=== PATIENT | female | born 1955 | race Caucasian/White ===

== ENCOUNTER → 2020-10-17 | Outpatient (CLI) | payer OTHER, MEDICARE ==
[~2020-10-17] MED LIST: ALDACTONE50 MG PO; ALLER-TEC D 5-1 EACH PO; ALLERGY INJECTIONS; AZELASTINE HCL6 ML OPHTHALMIC; BUSPIRONE HCL10 MG PO; CLONAZEPAM PO; DILAUDID 2 MG TA2 MG; DOXYCYCLINE HYC50 M4 PO; ELDERBERRY-VIT1 EACH PO; ENDOCET 5-3251 EACH PO; FISH OIL 1,0001 EAC9 PO; GLUCOPHAGE XR750 MG PO; GLUCOSAMINE &1 EACH PO; LIPITOR 10 MG10 M1 PO; LIPITOR20 MG PO; MINIPRESS2 MG PO; MYSOLINE50 MG PO; OMEPRAZOLE 20 M20 M1 PO; PROAIR RESPICL90 MCG INH; PROZAC20 M1 PO; PSEUDOEPHEDRINE PO; QNASL10.6 GM NASAL; SAPHRIS10 MG PO; SYMBICORT160 MCG/4. INH; TRAMADOL 50 MG50 MG PO; TRAZODONE HCL100 MG PO; VITAMIN B-121000 MC3 PO; VITAMIN D350 MCG PO; XYZAL5 MG PO
== END ==
LOC: LAB 10:46
PROVIDERS: ATTEND Student in an Organized Health Care Education/Training Program
DX: Z01.812 Encounter for preprocedural laboratory examination (principal); Z20.828 Contact with and (suspected) exposure to other viral communicable diseases

== ENCOUNTER 2020-10-23 08:00 | Day surgery (SDC) | payer OTHER, MEDICARE ==
[2020-10-17 08:57] LABS: URINE BILIRUBIN NEGATIVE (Negative); URINE BLOOD NEGATIVE (Negative); URINE CLARITY CLEAR; URINE COLOR YELLOW; URINE GLUCOSE-RANDOM* NEGATIVE (Negative); URINE KETONES TRACE (Negative); URINE LEUKOCYTES-REFLEX NEGATIVE (Negative); URINE NITRITE-REFLEX NEGATIVE (Negative); URINE PROTEIN (DIPSTICK) NEGATIVE (Negative); URINE SPECIFIC GRAVITY >= 1.030 (1.005-1.035); URINE UROBILINOGEN 0.2 E.U./dl (0.2-1.0)
[2020-10-17 08:58] LABS: HEMATOCRIT 37.7 % (37.0-47.0); HEMOGLOBIN 12.9 gm/dL (12.0-15.0); MCH 32.6 pg (26.0-34.0); MCHC 34.2 g/dL (28.0-37.0); MCV 95.3 fL (80.0-100.0); RBC 3.95 mil/uL (4.20-5.00); RDW 12.9 % (10.5-14.5); WBC 5.4 thou/uL (4.0-11.0)
[2020-10-17 09:03] LABS: ALBUMIN 4.1 g/dL (3.4-5.0); CALCIUM 9.7 mg/dL (8.5-10.1); CREATININE 1.1 mg/dL (0.6-1.0); POTASSIUM 3.7 mmol/L (3.5-5.1)
[2020-10-17 09:13] LABS: PROTIME 10.5 Seconds (9.3-11.4)
--- NOTE | 2020-10-17 11:56 | EKG ---
[address] [address] ELECTROCARDIOGRAM REPORT Name: KENY MARTNI Room #: PRE [facility]#: [id number] Admission: Attend Phys: Oscar Ponce MD Discharge: Date of : 59 Report #: [id number] [facility] Test Date: 2020-10-17 Test Time: 08:55:10 Pat Name: KENY MARTIN Department: Room: Gender: F Medical Physicist: ANGIE DIGGS : 1955 Requested By: Ocsar Ponce Order Number: [id number] : Akira Muller Measurements Intervals [place] Rate: 72 P: 39 GA: 192 QRS: -8 QRSD: 91 T: 41 QT: 362 QTc: 397 Interpretive Statements Sinus rhythm Compared to ECG 07/15/2011 07:16:51 T-wave abnormality no longer present Electronically Signed On 10-17-2020 11:56:41 [employer] by Akira Muller [email or web address] <ELECTRONICALLY SIGNED> By: Akira Muller MD, [facility] 10/17/20 1156 [id number] Akira Muller MD, FACC /EPI
[2020-10-18 00:06] LABS: GLYCOHEMOGLOBIN (HGB A1C) 5.7 % (4.8-5.6)
[~2020-10-23] VITALS: Ht 162.6 cm; Wt 101.6 kg
[2020-10-23 15:06] VITALS: BP 113/79
[2020-10-23 18:49] VITALS: BP 127/57
[2020-10-24 04:08] VITALS: BP 96/34
--- NOTE | 2020-10-24 04:34 | NUR ---
ASSUMED CARE OF PT AT 1900HRS. PT AOX4 AND LETS NEEDS BE KNOWN. FALL PRECAUTION IN PLACE. PT IS S/P KNEE REPLACEMENT DAY 0. PAULIE WRAP, POLAR CARE, TEDS AND SCD IN PLACE. PT REPORTED SOME PAIN AND WAS TREATED WITH PRN PO PAIN MEDS. ABX TREATMENT CONTINUED. BP IS LOW BUT OTHER VSS. PT IS ASYMPTOMATIC. PT WAS [place] TO GET COMFORTABLE AND SLEEP PART OF THE SHIFT. WILL CONTINUE TO MONITOR.
[2020-10-24 08:09] VITALS: BP 102/53
--- NOTE | 2020-10-24 08:37 | NUR ---
RD notified by RN that pt is allergic to MSG. Noted allergy in chart. Diet modified to 2g Sodium. RD will remain available.
--- NOTE | 2020-10-24 12:10 | NUR ---
Pt visited with this am. Pt notes she is allergic to MSG and after eating the roasted chicken and potatoes last pm pt states she had an allergic reaction requiring benedryl. RD discussed with food technology teacher who stated no products with MSG are used. Discussed with pt who states she cannot have nitrates or nitrites as well. Encouraged pt to call down and order her own items prior to meals to help reduce the risk of allergic reaction. Pt attempted to order lunch, however clock in room was slow and lunch ordering had been ended. Pt was eventually able to order lunch items. RD encouraged pt to order prior to 4:30pm cut off for dinner if she was not able to d/c by this time. Pt expressed anxiety over going home and pain. Tearful but pleasant. RD will remain available.
[2020-10-24 13:30] VITALS: BP 102/53
[2020-10-24 13:33] VITALS: BP 102/53
--- NOTE | 2020-10-24 13:39 | NUR ---
ASSESSMENT: CM REVIEWED CHART. PT IS S/P RIGHT TKA. PT LIVES IN A HOUSE WITH HER SPOUSE. PT HAS A COUPLE OF STEPS TO ENTER. PT REPORTS HAVING A WALKER AT HOME. PT STATES SHE IS WANTING HH AT DISCHARGE SHE HAS NOONE THAT CAN DRIVE HER TO OUTPT THERAPY. CM DISCUSSED DIFFERENT HH OPTIONS AND SHE STATES SHE HAS NO PRERFERENCE OF HH AGENCY. CM FAXED REFERRAL TO [facility]. PT IS DISCHARGING HOME TODAY. PT REPORTS NO FURTHER NEEDS FROM CM.
--- NOTE | 2020-10-24 13:40 | NUR ---
PT ASSESSED AT START OF SHIFT. WALKING W/ THERAPY AND DOING WELL. DSNG DRY. ICE PACK IN PLACE. PAIN RELEIVED W/ PAIN MED. EATING AND DRINKING WELL. PLANNING TO HAVE HOME HEALTH THERAPY. DISCHARGED AT THIS TIME W/ ALL BELONGINGS.
--- NOTE | 2020-10-25 08:30 | O ---
[facility] [place] [place] [address] OPERATIVE REPORT Name: KENY MARTIN Room #: DEP [facility]..#: [id number] Admission: 10/23/20 Attend Phys: Oscar Ponce MD Discharge: 10/24/20 Date of : 59 Report #: [id number] THIS REPORT FOR: cc: César Altamirano MD, Halla MD Abraham,Oscar Ruiz MD ~ DATE OF SERVICE: 10/23/2020 PREOPERATIVE DIAGNOSIS: Right knee osteoarthritis. POSTOPERATIVE DIAGNOSIS: Right knee osteoarthritis. PROCEDURE: Right total knee arthroplasty using Navio robotic assistant vice president. SURGEON: Oscar Ponce MD WARDROBE ATTENDANT: Cindy Munroe PA-C INDICATIONS FOR WARDROBE ATTENDANT: Throughout the case, extensive retraction and manipulation of the knee was required. This was afforded to me by my assistant vice president. ANESTHESIA: LMA with an adductor canal block. IMPLANTS: Choudhury and Nephew size 5 Journey II BCS Oxinium femur, size 3 tibia, size 11 polyethylene and size 32 patella. TOURNIQUET TIME: 47 minutes. ESTIMATED BLOOD LOSS: 25 mL. COMPLICATIONS: None. SPECIMENS: None. CONDITION UPON LEAVING THE OPERATING ROOM: Stable. INDICATIONS FOR PROCEDURE: The patient is a 64-year-old female with right knee osteoarthritis. She had failed conservative measures for this and after discussion with her, she elected for right total knee arthroplasty. DESCRIPTION OF PROCEDURE: Risks, benefits, alternatives, and complications were discussed in detail with the patient including but not limited to risk of anesthesia, risk of damage to nerves, arteries, blood vessels, risk for infection, bleeding, risk for continued knee pain, need for reoperation. Informed consent was obtained from the patient. Right knee was appropriately [facility] [address] [place] [address] OPERATIVE REPORT Name: KENY MARTIN Room #: DEP [facility] Domingo.#: [id number] Admission: 10/23/20 Attend Phys: Oscar Ponce MD Discharge: 10/24/20 Date of : 59 Report #: [id number] marked in the preoperative holding area. IV clindamycin was given for preoperative antibiotics. She was brought to the operating room and placed in the supine position on the operating room table. LMA anesthesia was induced without complication. Tourniquet was placed on the right thigh. Right lower extremity was prepped and draped in normal sterile fashion. Timeout was performed properly identifying the patient and procedure as well as the instrumentation and implants. All in the operating room were in agreement. Right lower extremity was exsanguinated, tourniquet was inflated. Tourniquet time was 47 minutes. Standard midline approach to the knee was made with 10 blade through the skin. Dissection was taken down sharply to the fascia and deep flaps were developed medially and laterally. Fresh 10 blade was used to make a medial parapatellar arthrotomy and the knee was inspected. There was severe medial compartment with moderate patellofemoral compartment osteoarthritis. ACL and PCL were removed sharply. Reference pins were placed in the femur and the tibia. The knee was then digitally mapped using the [employer] robotic system. Intraoperative plan was made and we sized the size 5 femur and size 3 tibia and a size 10 spacer. After acceptance of the intraoperative plan, the distal femoral cut was made with a Navio bur. Distal femoral cutting block was pinned in place and chamfer cuts were made. Attention was turned to the tibia. Remainder of the menisci removed with Bovie cautery. Tibial resection guide was pinned in place using the Navio for placement and tibial resection was made. Flexion and extension gaps were then checked and found to have good balance in flexion and extension both medially and laterally. Tibia was sized, found to be a size 3. A size 3 tibial trial was placed, pinned and punched. A size 5 femoral trial was placed and box cut was made. This was then trialed with a size 10 and then a size 11 polyethylene. Size 11 demonstrated 1-2 mm of laxity medially and laterally throughout range of motion of the knee. A 9 mm was resected from the posterior surface of the patella and a size 32 patellar trial button was placed. Knee was taken through range of motion, found to be stable, found to have good patellar tracking. Trial components were removed. Bony ends were thoroughly irrigated with normal saline. Final size 3 tibia, size 5 Journey II BCS Oxinium femur and a size 32 patella were cemented in place using standard cementation techniques. While the cement cured, a periarticular injection consisting of morphine, ropivacaine, epinephrine and Toradol was placed around the knee joint capsule. After the cement cured, the tourniquet was deflated. Hemostasis was obtained with Bovie cautery. A final size 11 polyethylene was placed. A gram of vancomycin was placed deep in the joint. The fascia was closed with 0 Vicryl, skin was closed with 2-0 Vicryl and skin staple. MELVIN dressing was applied. The patient tolerated this procedure well and went to the recovery room under care of anesthesia postoperatively. <ELECTRONICALLY SIGNED> By: Oscar Ponce MD 10/25/20 0830 [id number] Oscar Ponce MD /nt
== END 2020-10-24 13:40 | disposition home health service (06) ==
LOC: OR 08:00 → TBA 08:05 → OR 08:11 → 4S 15:28 → OR 10-24 13:40
PROVIDERS: ATTEND Orthopaedic Surgery
DX: M17.11 Unilateral primary osteoarthritis, right knee (principal); M25.561 Pain in right knee; E11.9 Type 2 diabetes mellitus without complications; E78.00 Pure hypercholesterolemia, unspecified; J45.909 Unspecified asthma, uncomplicated; K21.9 Gastro-esophageal reflux disease without esophagitis; F32.9 Major depressive disorder, single episode, unspecified; F41.9 Anxiety disorder, unspecified; M19.90 Unspecified osteoarthritis, unspecified site; Z98.890 Other specified postprocedural states; Z79.899 Other long term (current) drug therapy; Z90.710 Acquired absence of both cervix and uterus; Z90.49 Acquired absence of other specified parts of digestive tract; Z85.3 Personal history of malignant neoplasm of breast; Z88.8 Allergy status to other drugs, medicaments and biological substances; Z88.2 Allergy status to sulfonamides
CPT/HCPCS: 50010; 50101; 50415; 50954; 51130; 51225; 51320; 51412; 52001; 52282; 53000; 53078; 53365; 56527; 56528; 57095; 57103; 57110; 57127; 57180; 64039; 70005